=== PATIENT | male | born 1950 | race Caucasian/White ===

== ENCOUNTER 2018-06-11 06:57 | Day surgery (SDC) | payer MEDICARE, BC ==
[~2018-06-11 06:57] MED LIST: Lactated Ringers 1,000 ML IV SCH; Sodium Chloride 0.9% 10 ML Syringe FLUSH PRN
[2018-06-11] MEDS ORDERED: Lidocaine 2% 100 MG/5 ML Syringe IVPUSH ONE (06:58)
[2018-06-11] MEDS ORDERED: Propofol 200 MG/20 ML SDV IV ONE (06:58)
--- NOTE | 2018-06-11 08:15 | PCM.OPNOTE ---
- General Post-Op/Procedure Note Date of Surgery/Procedure: 06/11/18 Operative Procedure(s): egd with bx Findings: gastritis and hiatal hernia Pre Op Diagnosis: gastroduodenitis Post-Op Diagnosis: gastritis and hiatal hernia Anesthesia Technique: ELENA Primary Surgeon: Inocencio Malik Anesthesia Provider: Yahir Kumar Pathology: stomach Complications: None Condition: Good Free Text/Narrative:: see dictation
[2018-06-11 09:03] VITALS: BP 131/93
--- NOTE | 2018-06-11 09:21 | OR ---
DATE OF OPERATION: 06/11/2018 SURGEON: Inocencio Malik MD PROCEDURE PERFORMED: Upper endoscopy with cold forceps biopsy. PREOPERATIVE DIAGNOSIS: History of gastric duodenitis. POSTOPERATIVE DIAGNOSES: Gastritis and a hiatal hernia. INDICATIONS FOR PROCEDURE: This is a 67-year-old white male who presented essentially with a complaint of feeling that his known gastritis had gotten worse. He was offered and accepted an EGD. DESCRIPTION OF OPERATION: After an excellent IV sedation was administered, the bite block was inserted. The flexible endoscope was passed without difficulty down the patient's esophagus into the stomach. The stomach was insufflated, scope was passed through the pylorus to the second portion of the duodenum and slowly withdrawn. The following findings were noted, the duodenum was unremarkable. The stomach demonstrated a hiatal hernia with approximately 5 cm of stomach up in the chest. Diffuse gastritis was noted. It was worse in the area of the antrum. Multiple biopsies were taken throughout the stomach and submitted in 1 container. The esophagus itself was unremarkable. The stomach was deflated, scope was removed. The patient tolerated the procedure well, was taken to Recovery. Results by letter. /[id number] /MODL
== END 2018-06-11 09:00 | disposition home or self-care (01) ==
LOC: FB.SDS 06:57
PROVIDERS: ATTEND Surgery
DX: K29.50 Unspecified chronic gastritis without bleeding (principal); K44.9 Diaphragmatic hernia without obstruction or gangrene; N40.1 Benign prostatic hyperplasia with lower urinary tract symptoms; N13.8 Other obstructive and reflux uropathy; F41.9 Anxiety disorder, unspecified; K21.9 Gastro-esophageal reflux disease without esophagitis; Z79.899 Other long term (current) drug therapy; Z88.5 Allergy status to narcotic agent
CPT/HCPCS: 00731-QZ; 88305; 88342; J2001; J2704; J7120

== ENCOUNTER 2021-10-25 16:38 | Emergency (ER) | payer MEDICARE, BC ==
[2021-10-25] MEDS ORDERED: Acetaminophen 500 MG Tab PO ONE (16:59)
[2021-10-25] MEDS ORDERED: Simethicone 80 MG Tab.Chew PO STA (16:59)
[2021-10-25 17:30] VITALS: BP 169/100; PULSE 67
== END 2021-10-25 18:24 | disposition home or self-care (01) ==
LOC: FB.ED 16:38
DX: R14.0 Abdominal distension (gaseous) (principal); Z88.5 Allergy status to narcotic agent; Z79.899 Other long term (current) drug therapy; Z90.49 Acquired absence of other specified parts of digestive tract
CPT/HCPCS: 36415; 74018; 84484; 93005; 99285; A9270

== ENCOUNTER 2022-11-01 05:01 | Emergency (ER) | payer MEDICARE, BC ==
[2022-11-01] MEDS ORDERED: Sodium Chloride 0.9% 10 ML Syringe FLUSH PRN (05:42)
[2022-11-01] MEDS ORDERED: cefTRIAXone 2 GM Vial IVPUSH ONE ×2 (05:54→06:08)
[2022-11-01] MEDS ORDERED: Ciprofloxacin in D5W 400 MG in Premix Bag 1 BAG IV ONE ×2 (05:54)
[2022-11-01] MEDS ORDERED: Ketorolac 30 MG/ML SDV IVPUSH ONE (05:54)
[2022-11-01 06:18] LABS: HEMOGLOBIN 14.3 g/dL (12.9-17.7); MEAN CORPUSCULAR HEMOGLOBIN 30.9 pg (27.0-33.3); MEAN CORPUSCULAR HGB CONC 34.1 g/dL (28.7-35.3); MEAN CORPUSCULAR VOLUME 90.6 fL (80.8-98.7); MEAN PLATELET VOLUME 7.6 fL (6.7-11.0); PLATELET COUNT,PLT 132 x10(3)uL (117-477); RED BLOOD CELL COUNT 4.64 x10(6)uL (3.90-5.90); RED CELL DISTRIBUTION WIDTH 13.2 % (12.4-15.0); WHITE BLOOD CELL COUNT,WBC 10.5 x10-3/uL (3.2-10.1)
[2022-11-01 06:20] LABS: BLOOD UREA NITROGEN,BUN 20 mg/dL (7-18); BUN/CREATININE RATIO 18.2 (9-20); CALCIUM 8.8 mg/dL (8.6-10.2); CARBON DIOXIDE,CO2 26 mmol/L (21-32); CHLORIDE,CL 101 mmol/L (100-110); CREATININE 1.1 mg/dL (0.70-1.30); ESTIMATED GFR 71 mL/min (>60); GLUCOSE RANDOM 134 mg/dL (80-116); POTASSIUM,K 3.5 mmol/L (3.5-5.3); SODIUM,NA 138 mmol/L (135-145)
[2022-11-01 06:25] LABS: A/G RATIO 1.1; ALANINE AMINOTRANSFERASE,ALT 21 U/L (12-36); ALBUMIN 3.6 g/dL (3.2-4.6); ALKALINE PHOSPHATASE 65 IU/L (56-112); AMYLASE 92 U/L (25-115); ASPARTATE AMNIOTRANSFERASE,AST 19 IU/L (5-25); BILIRUBIN TOTAL 1.4 mg/dL (0.1-1.3); PROTEIN TOTAL,TP 6.9 g/dL (6.0-8.0)
[2022-11-01 06:27] LABS: BASE EXCESS VENOUS,POC 1 mmol/L (-2 - 3+); PCO2 VENOUS,POC 31 mmHg (41-51); PH VENOUS,POC 7.49 pH Units (7.32-7.43)
[2022-11-01 06:28] LABS: LACTIC ACID 1.6 mmol/L (0.4-2.0)
[2022-11-01 06:31] LABS: BILIRUBIN,URINE NEGATIVE (NEGATIVE); GLUCOSE,URINE NORMAL (NORMAL); KETONES,URINE NEGATIVE (NEGATIVE); LEUKOCYTE ESTERASE,URINE MODERATE (NEGATIVE); NITRITE,URINE NEGATIVE (NEGATIVE); OCCULT BLOOD,URINE MODERATE (NEGATIVE); PROTEIN,URINE NEGATIVE (NEGATIVE); UROBILINOGEN,URINE NORMAL (NEGATIVE)
[2022-11-01 06:38] LABS: APPEARANCE,URINE SLIGHTLY CLOUDY (CLEAR); BACTERIA,URINE MODERATE (NS); COLOR,URINE YELLOW (YELLOW); RBC,URINE 0-5 (0-5); SQUAMOUS EPITHELIAL CELLS,UR OCCASIONAL (NS,R,O); WBC,URINE 20-30 (0-5)
[2022-11-01 06:38] LABS: BAND PERCENT MAN 5 % (0-6); C-REACTIVE PROTEIN 3.35 mg/dL (<0.33); SEG NEUTROPHILS PERCENT MAN 82 % (46-82)
[2022-11-01 06:39] LABS: EOSINOPHILS PERCENT MAN 2 % (0-5); LYMPHOCYTES PERCENT MAN 7 % (13-37); MONOCYTES PERCENT MAN 4 % (4-12)
[2022-11-01] MEDS ORDERED: Acetaminophen 500 MG Tab PO ONE (06:40)
[2022-11-01] MEDS ORDERED: Ondansetron 4 MG Tab.DIS PO ONE (06:53)
[2022-11-01 07:00] VITALS: BP 129/73; PULSE 89
== END 2022-11-01 07:30 | disposition home or self-care (01) ==
LOC: FB.ED 05:01
DX: N41.9 Inflammatory disease of prostate, unspecified (principal); N39.0 Urinary tract infection, site not specified; Z88.5 Allergy status to narcotic agent; Z79.899 Other long term (current) drug therapy
CPT/HCPCS: 36415; 71045; 80053; 81001; 82150; 83605; 83690; 85025; 86140; 87040; 87086; 87088; 87186; 96365; 96375; 99283; A9270; J0696; J0744; J1885; Q0162

== ENCOUNTER 2024-11-21 18:48 | Emergency (ER) | payer MEDICARE, BC ==
[2024-11-21] MEDS ORDERED: Nitrofurantoin Monohydrate/Macrocrystalline 100 MG Cap PO ONE (18:49)
[2024-11-21 19:23] LABS: MEAN PLATELET VOLUME 7.0 fL (6.7-11.0); PLATELET COUNT,PLT 198 x10(3)uL (117-477); RED BLOOD CELL COUNT 5.04 x10(6)uL (3.90-5.90); RED CELL DISTRIBUTION WIDTH 12.9 % (12.4-15.0); WHITE BLOOD CELL COUNT,WBC 11.2 x10-3/uL (3.2-10.1)
[2024-11-21 19:26] LABS: BLOOD UREA NITROGEN,BUN 14 mg/dL (7-18); CARBON DIOXIDE,CO2 29 mmol/L (21-32); CHLORIDE,CL 100 mmol/L (100-110); CREATININE 1.0 mg/dL (0.70-1.30); ESTIMATED GFR 79 mL/min (>60); GLUCOSE RANDOM 116 mg/dL (80-116); POTASSIUM,K 4.5 mmol/L (3.5-5.3); SODIUM,NA 136 mmol/L (135-145)
[2024-11-21 19:27] LABS: GLUCOSE,URINE NORMAL (NORMAL); OCCULT BLOOD,URINE LARGE (NEGATIVE)
[2024-11-21 19:28] LABS: APPEARANCE,URINE CLOUDY (CLEAR)
[2024-11-21 19:29] LABS: SQUAMOUS EPITHELIAL CELLS,UR FEW (NS,R,O)
[2024-11-21 19:35] LABS: LACTIC ACID 1.5 mmol/L (0.4-2.0); LYMPHOCYTES PERCENT MAN 9 % (13-37); MONOCYTES PERCENT MAN 9 % (4-12); SEG NEUTROPHILS PERCENT MAN 82 % (46-82)
[2024-11-21 20:44] VITALS: BP 131/76; PULSE 95
== END 2024-11-21 20:15 | disposition home or self-care (01) ==
LOC: FB.ED 18:48
DX: N30.00 Acute cystitis without hematuria (principal); Z88.2 Allergy status to sulfonamides; Z88.5 Allergy status to narcotic agent; Z88.8 Allergy status to other drugs, medicaments and biological substances; Z79.899 Other long term (current) drug therapy
CPT/HCPCS: 36415; 71046; 80048; 81001; 83605; 85025; 86140; 87040; 87086; 87088; 87186; 99283; A9270

== ENCOUNTER 2024-12-23 13:51 | Emergency (ER) | payer MEDICARE, BC ==
[2024-12-23] MEDS ORDERED: Sodium Chloride 0.9% 10 ML Syringe FLUSH PRN (14:20)
[2024-12-23] MEDS: Ondansetron 4 MG/2 ML SDV IVPUSH ONE (14:39)
[2024-12-23 14:46] LABS: BASOPHILS ABSOLUTE AUTO 0.0 x10-3/uL (0.0-0.3); BASOPHILS PERCENT AUTO 0.2 % (0.3-3.8); EOSINOPHILS ABSOLUTE AUTO 0.0 x10-3/uL (0.0-0.6); EOSINOPHILS PERCENT AUTO 0.3 % (0.1-6.8); LYMPHOCYTES ABSOLUTE AUTO 0.6 x10-3/uL (0.5-4.5); LYMPHOCYTES PERCENT AUTO 9.2 % (15.8-45.3); MEAN PLATELET VOLUME 6.4 fL (6.7-11.0); MONOCYTES ABSOLUTE AUTO 0.5 x10-3/uL (0.0-1.2); MONOCYTES PERCENT AUTO 7.6 % (5.5-15.2); NEUTROPHILS ABSOLUTE AUTO 5.4 x10-3/uL (1.7-6.9); NEUTROPHILS PERCENT AUTO 82.7 % (40.3-71.8); PLATELET COUNT,PLT 260 x10(3)uL (117-477); RED BLOOD CELL COUNT 4.81 x10(6)uL (3.90-5.90); RED CELL DISTRIBUTION WIDTH 12.7 % (12.4-15.0); WHITE BLOOD CELL COUNT,WBC 6.5 x10-3/uL (3.2-10.1)
[2024-12-23 14:47] LABS: BLOOD UREA NITROGEN,BUN 13 mg/dL (7-18); CARBON DIOXIDE,CO2 28 mmol/L (21-32); CHLORIDE,CL 99 mmol/L (100-110); CREATININE 0.8 mg/dL (0.70-1.30); ESTIMATED GFR 93 mL/min (>60); GLUCOSE RANDOM 117 mg/dL (80-116); POTASSIUM,K 4.1 mmol/L (3.5-5.3); SODIUM,NA 136 mmol/L (135-145)
[2024-12-23 14:52] LABS: A/G RATIO 0.8; ALANINE AMINOTRANSFERASE,ALT 91 U/L (12-36); ASPARTATE AMNIOTRANSFERASE,AST 94 IU/L (5-25); BILIRUBIN TOTAL 0.6 mg/dL (0.1-1.3); PROTEIN TOTAL,TP 7.5 g/dL (6.0-8.0)
[2024-12-23 14:57] LABS: LACTIC ACID 1.1 mmol/L (0.4-2.0)
[2024-12-23 15:39] VITALS: BP 134/78; PULSE 80
[2024-12-23 15:40] LABS: GLUCOSE,URINE NORMAL (NORMAL); OCCULT BLOOD,URINE MODERATE (NEGATIVE)
[2024-12-23 15:43] LABS: APPEARANCE,URINE CLOUDY (CLEAR)
[2024-12-23 15:44] LABS: SQUAMOUS EPITHELIAL CELLS,UR FEW (NS,R,O)
== END 2024-12-23 16:09 | disposition home or self-care (01) ==
LOC: FB.ED 13:51
DX: N30.00 Acute cystitis without hematuria (principal); C64.9 Malignant neoplasm of unspecified kidney, except renal pelvis; C78.00 Secondary malignant neoplasm of unspecified lung; Z90.49 Acquired absence of other specified parts of digestive tract; Z98.52 Vasectomy status; Z88.2 Allergy status to sulfonamides; Z88.5 Allergy status to narcotic agent
CPT/HCPCS: 36415; 80053; 81001; 83605; 83735; 85025; 86140; 87086; 87088; 87186; 87428-QW; 96361; 96374; 99284-25; A9270-GY; J2405; J7030